=== PATIENT | female | born 1945 | race Caucasian/White ===

== ENCOUNTER → 2017-11-28 | Day surgery (SDC) | payer MEDICARE, BC ==
[~2017-11-28] MED LIST: Lactated Ringers 1,000 ML IV SCH; Propofol 200 MG/20 ML SDV IV ONE
[2017-11-28 12:32] VITALS: BP 132/61
--- NOTE | 2017-11-28 13:06 | OR ---
DATE OF OPERATION: 11/28/2017 PREOPERATIVE DIAGNOSIS: POSITIVE COLOGUARD. POSTOPERATIVE DIAGNOSIS: POSITIVE COLOGUARD. SURGEON: Santos Wood MD PROCEDURE: COLONOSCOPY WITH BIOPSY X3. ANESTHESIA: SENIOR TELECOMMUNICATIONS ENGINEER. COMPLICATIONS: None. SPECIMEN: Biopsy x3 right colon. FINDINGS: 1. Full-length colonoscopy. 2. Moderate sigmoid diverticulosis. 3. Mucosal abnormality cecum proximal ascending colon. RECOMMENDATIONS: Medical followup, pending path reports, and no obvious etiology found for the patient's positive Cologuard. INDICATIONS: The patient has been doing fine. Last colonoscopy 10 years ago was normal other than her diverticula. She had a positive Cologuard. Dr. Healy sent her in for colonoscopy. DESCRIPTION OF PROCEDURE: The patient was prepped and draped, placed in the left lateral decubitus position. A lubricated Olympus colonoscope was inserted and easily advanced to the cecum and under directly visualized the ileocecal valve and the appendiceal orifice. The bowel prep was excellent. Upon withdrawal, the patient almost as like early mild melanosis coli type picture in the cecum and proximal ascending colon. She has had some thickening in the glandular tissue over lining. Nothing specific in no obvious mass. I did do 2 biopsies near the cecum and one of the mid to distal ascending colon. The rest of the transverse and descending areas were completely benign. The patient does have prominent diverticulosis of the sigmoid and rectosigmoid junction, moderate in severity without any inflammatory change throughout the left colon. I could find no polyps, mass, ulceration, or bleeding sites. No vascular abnormalities or signs of colitis. The rectal vault was benign. Retroflexion showed no perianal lesions. Air was suctioned. Scope was removed without complication. ALLEN/MATEO /[id number]
== END ==
LOC: CC.SDS 09:43
PROVIDERS: ATTEND Family Medicine
DX: R19.5 Other fecal abnormalities (principal); K63.89 Other specified diseases of intestine; K57.30 Diverticulosis of large intestine without perforation or abscess without bleeding; I10 Essential (primary) hypertension; Z79.02 Long term (current) use of antithrombotics/antiplatelets; Z79.82 Long term (current) use of aspirin; Z79.899 Other long term (current) drug therapy; Z88.0 Allergy status to penicillin; Z88.8 Allergy status to other drugs, medicaments and biological substances
CPT/HCPCS: 00811; 45380; J2704; J7120

== ENCOUNTER 2019-04-18 10:02 | Emergency (ER) | payer MEDICARE, BC ==
--- NOTE | 2019-04-18 10:36 | EDM.PDOC ---
ED HPI GENERAL MEDICAL PROBLEM - General Chief Complaint: Cardiovascular Problem Stated Complaint: HTN Time Seen by Provider: 04/18/19 10:10 Source of Information: Reports: Patient History Limitations: Reports: No Limitations - History of Present Illness INITIAL COMMENTS - FREE TEXT/NARRATIVE: This patient is a 73 year old female that presents to the ER. Patient reports that the last few days she hasnt been feeling great. She reports that today she has taken her BP at home and it was high. She reports she took it again, and again, and it was still high. She reports as she took her BP her HR was also high at 111. The patient reports that in October she had her Metoprolol increased from 100mg to 150mg, she reports for HTN, but she states "it is not helping." The patient denies marroquin, dizziness, lightheaded, n, v, vision changes, chest pain , shortness of breath, abd pain, urinary/bowel changes, congestion, drainage, cough. Onset: Today Worsens with: Reports: None Associated Symptoms: Reports: Malaise. Denies: Confusion, Chest Pain, Cough, cough w sputum, Diaphoresis, Fever/Chills, Headaches, Loss of Appetite, Nausea/ Vomiting, Rash, Seizure, Shortness of Breath, Syncope, Weakness - Related Data Allergies Allergy/AdvReac Type Severity Reaction Status Date / Time lisinopril Allergy Rash Verified 04/18/19 10:35 Penicillins Allergy Rash Verified 04/18/19 10:35 Home Meds: Home Meds Aspirin [Adult Low Dose Aspirin EC] 81 mg PO DAILY 04/11/15 [History] Metoprolol Succinate [Toprol XL] 150 mg PO DAILY 04/11/15 [History] Potassium Chloride 10 meq PO DAILY 04/11/15 [History] hydroCHLOROthiazide [Hydrochlorothiazide] 12.5 mg PO DAILY 04/11/15 [History] Cholecalciferol (Vitamin D3) [Vitamin D3] 5,000 unit PO DAILY 11/24/17 [History] Cinnamon Bark [Cinnamon] 500 mg PO DAILY 11/24/17 [History] Fish Oil/DHA/EPA [Fish Oil 1,200 MG] 1 each PO DAILY 11/24/17 [History] Flaxseed Oil 1,000 mg PO DAILY 11/24/17 [History] Magnesium Oxide [Magnesium] 500 mg PO DAILY 11/24/17 [History] Rivaroxaban [Xarelto] 20 mg PO DAILY 04/18/19 [History] ED ROS GENERAL - Review of Systems Review Of Systems: See Below Constitutional: Reports: Malaise, Weakness (generalized) HEENT: Reports: No Symptoms Respiratory: Reports: No Symptoms. Denies: Shortness of Breath Cardiovascular: Reports: Blood Pressure Problem (HTN). Denies: Chest Pain, Dyspnea on Exertion, Edema, Lightheadedness, Palpitations, Syncope Endocrine: Reports: No Symptoms GI/Abdominal: Reports: No Symptoms. Denies: Diarrhea, Nausea, Vomiting : Reports: No Symptoms Musculoskeletal: Reports: No Symptoms Skin: Reports: No Symptoms Neurological: Reports: No Symptoms, Numbness (not new. previous from stroke 7 years ago). Denies: Confusion, Dizziness, Headache, Seizure, Syncope, Tremors, Trouble Speaking, Change in Speech Psychiatric: Reports: No Symptoms Hematologic/Lymphatic: Reports: No Symptoms Immunologic: Reports: No Symptoms ED EXAM, GENERAL - Physical Exam Exam: See Below Exam Limited By: No Limitations General Appearance: Alert, WD/WN, No Apparent Distress, Anxious Eye Exam: Bilateral Eye: Normal Inspection, PERRL Ears: Normal External Exam, Normal Canal, Hearing Grossly Normal, Normal TMs Ear Exam: Bilateral Ear: Auricle Normal, Canal Normal, TM normal Nose: Normal Inspection, Normal Mucosa, No Blood Throat/Mouth: Normal Inspection, Normal Lips, Normal Teeth, Normal Gums, Normal Oropharynx, Normal Voice, No Airway Compromise Head: Atraumatic, Normocephalic Neck: Normal Inspection, Supple, Non-Tender, Full Range of Motion Respiratory/Chest: No Respiratory Distress, Lungs Clear, Normal Breath Sounds, No Accessory Muscle Use Cardiovascular: Normal Peripheral Pulses, Regular Rate, Rhythm, No Edema, No Gallop, No JVD, No Murmur, No Rub Peripheral Pulses: 2+: Radial (L), Radial (R), Posterior Tibial (L), Posterior Tibial (R) GI/Abdominal: Normal Bowel Sounds, Soft, Non-Tender, No Organomegaly, No Distention, No Abnormal Bruit, No Mass, Pelvis Stable Back Exam: Normal Inspection, Full Range of Motion Extremities: Normal Inspection, Normal Range of Motion, Non-Tender, No Pedal Edema, Normal Capillary Refill Neurological: Alert, Oriented, CN II-XII Intact, Normal Cognition, Normal Gait, Normal Reflexes, Sensory/Motor Deficit (CHRONIC mildly decreased sensation to right side of body from previous old stroke. But able to distinguish.) Psychiatric: Anxious Skin Exam: Warm, Dry, Intact, Normal Color, No Rash Lymphatic: No Adenopathy EKG INTERPRETATION EKG Date: 04/18/19 Time: 10:11 Rhythm: NSR Rate (Beats/Min): 88 ST-T: Normal EKG Interpretation Comments: Artifact. Patient is anxious. Will repeat latera after patient not as anxious. Course - Vital Signs Last Recorded V/S: Last Vital Signs Temp 97.9 F 04/18/19 10:02 Pulse 76 04/18/19 11:13 Resp 18 04/18/19 10:02 BP 156/74 H 04/18/19 11:13 Pulse Ox 98 04/18/19 10:02 - Orders/Labs/Meds Orders: Active Orders 24 hr Category Date Time Status EKG Documentation Completion [RC] STAT Care 04/18/19 10:22 Active Chest 2V [CR] Stat Exams 04/18/19 10:20 Taken Sodium Chloride 0.9% [Normal Saline] 500 ml Med 04/18/19 11:15 Active IV .BOLUS Medication Orders Sodium Chloride (Normal Saline) 500 mls @ 500 mls/hr IV .BOLUS CRISTEL Last Admin: 04/18/19 11:47 Dose: 500 mls/hr Labs: Laboratory Tests 04/18/19 04/18/19 04/18/19 Range/Units 10:20 10:20 13:00 WBC 11.0 H (5.0-10.0) 10^3/uL RBC 4.86 (4.00-5.50) 10^6/uL Hgb 14.6 (12.0-16.0) g/dL Hct 42.4 (37.0-47.0) % MCV 87.2 (82.0-94.0) fL MCH 30.0 (27.0-32.0) pg MCHC 34.4 (33.0-38.0) g/dL RDW Coeff of [place] 14.2 (11.0-15.0) % Plt Count 331 (150-400) 10^3/uL Neut % (Auto) 81.4 (35-85) % Lymph % (Auto) 9.2 L (10-55) % [place] % (Auto) 7.2 (0-16) % Eos % (Auto) 1.7 (0-5) % Baso % (Auto) 0.5 (0-3) % Neut # (Auto) 8.92 H (1.80-7.00) 10^3/uL Lymph # (Auto) 1.01 (1.00-4.80) 10^3/uL [place] # (Auto) 0.79 (0.00-0.80) 10^3/uL Eos # (Auto) 0.19 (0.00-0.45) 10^3/uL Baso # (Auto) 0.06 10^3/uL Sodium 140 (136-145) mEq/L Potassium 4.0 (3.5-5.0) mEq/L Chloride 104 (98-106) mEq/L Carbon Dioxide 29 (21-32) mmol/L BUN 20 H (7-18) mg/dL Creatinine 1.2 H (0.6-1.0) mg/dL Est Cr Clr Drug Dosing 43.63 mL/min Estimated GFR (MDRD) 44 L (>=60) mL/min Glucose 133 H (75-99) mg/dL Calcium 9.5 (8.4-10.1) mg/dL Magnesium 1.9 (1.8-2.4) mg/dL Total Bilirubin 0.4 (0.0-1.0) mg/dL AST 17 (15-37) U/L ALT 22 (12-78) U/L Alkaline Phosphatase 117 H (46-116) U/L Lactate Dehydrogenase 171 (100-190) U/L Creatine Kinase 103 (21-215) U/L Troponin I < 0.017 < 0.017 (0.00-0.06) ng/mL NT-Pro-B Natriuret Pep 166 (0-1000) pg/mL Total Protein 7.2 (6.4-8.2) g/dL Albumin 3.6 (3.4-5.0) g/dL Meds: Medications Generic Name Dose Route Start Last Admin Trade Name Freq PRN Reason Stop Dose Admin Sodium Chloride 500 mls @ 500 mls/hr 04/18/19 11:15 04/18/19 11:47 Normal Saline IV 500 mls/hr .BOLUS CRISTEL Administration Discontinued Medications Generic Name Dose Route Start Last Admin Trade Name Freq PRN Reason Stop Dose Admin Lorazepam 1 mg 04/18/19 11:17 04/18/19 11:47 Ativan IVPUSH 04/18/19 11:18 1 mg ONETIME ONE Administration - Radiology Interpretation Free Text/Narrative:: CXR: No infiltrates, no cardiac enlargement, no pulmonary edema. - Re-Assessments/Exams Free Text/Narrative Re-Assessment/Exam: 04/18/19 11:19 Went to speak to the patient about her results. She said she has been getting these episodes since her stroke 7 years ago of periods where she just doesnt feel good. She reports that she has periods of HTN. She asked if she is just supposed to live like this. The patient was educated about BP fluctuations, her labs here in the ER. I will repeat a troponin at repeat time. I asked the patient if she does feel anxious, because she appears to be anxious. She said that her PCP actually prescribed her Lorazepam and she took when she felt like this before. She reports it always helped her for these episodes in the past. I will give her Ativan IV, she has agreed to this and thinks it may help. We also further talked about her followup with her PCP and specialist that she sees. 04/18/19 13:42 Troponins negative. EKG shows no ST elevation. Latest BP is 156/74, HR is 76. Patient reports she does feel some better after having medication and me talking with her. I educated her that currently at this time no AK. She still has no complaint of chest pain, shortness of breath, nausea or any pain complains. I discussed with her no emergencies during her visit, she is to followup with her PCP tomorrow to discuss her concerns and medications. She is okay with this and is ready to go home. I will discharge the patient home. She voices back understanding when to return to the ER. Departure - Departure Time of Disposition: 13:37 Disposition: Home, Self-Care 01 Condition: Fair Clinical Impression: Anxiety Hypertensive heart disease Qualifiers: Heart failure presence: without heart failure Qualified Code(s): I11.9 - Hypertensive heart disease without heart failure Instructions: How to Take Your Blood Pressure, [id number], Hypertension Referrals: PCP,None [Primary Care Provider] - Forms: ED Department Discharge Additional Instructions: Followup with Dr. Healy tomorrow by calling his office tomorrow morning and be seen Return to the ER for worsening of condition or any emergent concerns such as chest pain, shortness of breath, stroke, or any concerns at all Please discuss your concerns, blood pressure, and medications with Dr. Healy You were given Lorezapam in the ER Go home and rest, no activity - My Orders Last 24 Hours: My Active Orders 04/18/19 10:20 Chest 2V [CR] Stat 04/18/19 10:22 EKG Documentation Completion [RC] STAT 04/18/19 11:15 Sodium Chloride 0.9% [Normal Saline] 500 ml IV .BOLUS - Assessment/Plan Last 24 Hours: My Active Orders 04/18/19 10:20 Chest 2V [CR] Stat 04/18/19 10:22 EKG Documentation Completion [RC] STAT 04/18/19 11:15 Sodium Chloride 0.9% [Normal Saline] 500 ml IV .BOLUS Plan: PLEASE SEE RN NOTE FOR PFSH
[2019-04-18 10:53] LABS: CHLORIDE,CL 104 mEq/L (98-106); SODIUM,NA 140 mEq/L (136-145)
[2019-04-18 11:13] VITALS: BP 156/74; PULSE 76
[2019-04-18] MEDS: LORazepam 2 MG/ML Syringe IVPUSH ONE (11:47)
[2019-04-18] MEDS: Sodium Chloride 0.9% 500 ML IV SCH (11:47)
== END 2019-04-18 13:49 | disposition home or self-care (01) ==
LOC: CC.ED 10:02
DX: F41.9 Anxiety disorder, unspecified (principal); I11.9 Hypertensive heart disease without heart failure; Z79.01 Long term (current) use of anticoagulants; Z79.82 Long term (current) use of aspirin; Z79.899 Other long term (current) drug therapy; Z86.73 Personal history of transient ischemic attack (TIA), and cerebral infarction without residual deficits; Z88.0 Allergy status to penicillin; Z88.8 Allergy status to other drugs, medicaments and biological substances
CPT/HCPCS: 36415; 71046; 80053; 82550; 83615; 83735; 83880; 84484; 85025; 93005; 96360; 96374; 99284-25; J2060; J7040

== ENCOUNTER 2021-07-13 09:05 | Emergency (ER) | payer MEDICARE, BC ==
[2021-07-13] MEDS ORDERED: methylPREDNISolone Sodium Succinate 125 MG/2 ML SDV IVPUSH PRN (10:03)
[2021-07-13] MEDS ORDERED: EPINEPHrine 1 MG/ML SDV IM PRN (10:03)
[2021-07-13] MEDS ORDERED: Famotidine 20 MG/2 ML SDV IVPUSH PRN (10:03)
[2021-07-13] MEDS ORDERED: diphenhydrAMINE 50 MG/ML SDV IVPUSH PRN (10:03)
[2021-07-13] MEDS ORDERED: Sodium Chloride 0.9% 10 ML Syringe FLUSH SCH (10:15)
[2021-07-13] MEDS ORDERED: NS + KCl 20mEq/L 1,000 ML IV SCH (10:15)
--- NOTE | 2021-07-13 11:22 | EDM.PDOC ---
ED HPI GENERAL MEDICAL PROBLEM - General Chief Complaint: General Stated Complaint: Diareha, Fatigue, SOB Time Seen by Provider: 07/13/21 09:30 Source of Information: Reports: Patient History Limitations: Reports: No Limitations - History of Present Illness INITIAL COMMENTS - FREE TEXT/NARRATIVE: Sonya is a 75 yo female who presents to the ED with c/o malaise and diarrhea. She reports symptom onset Friday07/09/2021. Reports since that time she has had multiple episodes of diarrhea a day. Reports even if she has a few sips of water, she will have a loose stool. Has been drinking ok but not eating. Has severe malaise and fatigue. Reports she has been unable to sleep more than 2 hours at night the last 2 nights. Reports she has been having body aches. She denies any fever or chills. Does have cough, sinus congestion, nausea, mild shortness of breath. Has received covid vaccine 2 dose series. Denies any known contact. Has known afib. Is anticoagulated with Xarelto and rate control with metformin. Denies any dizziness, chest pain, palpitations. Onset Date: 07/09/21 Duration: Constant Location: Reports: Generalized Severity: Moderate Associated Symptoms: Reports: Cough, Headaches, Loss of Appetite, Malaise, Shortness of Breath, Weakness. Denies: Confusion, Chest Pain, cough w sputum, Diaphoresis, Fever/Chills, Nausea/Vomiting, Rash, Seizure, Syncope body aches Pain Score (Numeric/FACES): 6 - Related Data Allergies Allergy/AdvReac Type Severity Reaction Status Date / Time lisinopril Allergy Rash Verified 04/18/19 10:35 Penicillins Allergy Rash Verified 04/18/19 10:35 Home Meds: Home Meds Metoprolol Succinate [Toprol XL] 200 mg PO DAILY 04/11/15 [History] Potassium Chloride 10 meq PO DAILY 04/11/15 [History] hydroCHLOROthiazide [Hydrochlorothiazide] 12.5 mg PO DAILY 04/11/15 [History] Cholecalciferol (Vitamin D3) [Vitamin D3] 5,000 unit PO DAILY 11/24/17 [History] Cinnamon Bark [Cinnamon] 500 mg PO DAILY 11/24/17 [History] Fish Oil/DHA/EPA [Fish Oil 1,200 MG] 1 each PO DAILY 11/24/17 [History] Magnesium Oxide [Magnesium] 500 mg PO DAILY 11/24/17 [History] flaxseed oiL [Flaxseed Oil] 1,000 mg PO DAILY 11/24/17 [History] Rivaroxaban [Xarelto] 20 mg PO DAILY 04/18/19 [History] Torsemide 20 mg PO DAILY 07/13/21 [History] Past Medical History Cardiovascular History: Reports: Afib, High Cholesterol, Hypertension Neurological History: Reports: CVA Other Neuro History: pt reports stroke 3 years ago Social & Family History - Family History Family Medical History: No Pertinent Family History - Tobacco Use Tobacco Use Status *Q: Never Tobacco User Second Hand Smoke Exposure: No - Caffeine Use Caffeine Use: Reports: None - Recreational Drug Use Recreational Drug Use: No ED ROS GENERAL - Review of Systems Review Of Systems: Comprehensive ROS is negative, except as noted in HPI. ED EXAM, GENERAL - Physical Exam Exam: See Below Exam Limited By: No Limitations General Appearance: Alert, WD/WN, No Apparent Distress, Other (tired) Eye Exam: Bilateral Eye: EOMI, Normal Fundi, Normal Inspection, PERRL Ears: Normal External Exam, Normal Canal, Hearing Grossly Normal, Normal TMs Nose: Nasal Swelling, Nasal Drainage Throat/Mouth: Normal Inspection, Normal Lips, Normal Teeth, Normal Gums, Normal Oropharynx, Normal Voice, No Airway Compromise Head: Atraumatic, Normocephalic Neck: Normal Inspection, Supple, Non-Tender, Full Range of Motion Respiratory/Chest: No Respiratory Distress, Lungs Clear, Normal Breath Sounds, No Accessory Muscle Use, Chest Non-Tender Cardiovascular: No Edema, No Murmur, Tachycardia, Irregularly Irregular Peripheral Pulses: 2+: Radial (L), Radial (R), Dorsalis Pedis (L), Dorsalis Pedis (R) GI/Abdominal: Normal Bowel Sounds, Soft, Non-Tender, No Organomegaly, No Distention, No Abnormal Bruit, No Mass Back Exam: Normal Inspection, Full Range of Motion, NT Extremities: Normal Inspection, Normal Range of Motion, Non-Tender, Normal Capillary Refill, No Pedal Edema Neurological: Alert, Oriented, CN II-XII Intact, Normal Cognition, Normal Gait, Normal Reflexes, No Motor/Sensory Deficits Psychiatric: Normal Affect, Normal Mood Skin Exam: Warm, Dry, Intact, No Rash, Pallor Lymphatic: No Adenopathy Course - Vital Signs Last Recorded V/S: Last Vital Signs Temp 99.3 F 07/13/21 09:12 Pulse 99 07/13/21 12:00 Resp 18 07/13/21 12:00 BP 141/88 H 07/13/21 12:00 Pulse Ox 96 07/13/21 12:00 - Orders/Labs/Meds Orders: Active Orders 24 hr Category Date Time Status Chest 2V [CR] Stat Exams 07/13/21 09:06 Taken Isolation [COMM] Routine Oth 07/13/21 09:08 Active Labs: Laboratory Tests 07/13/21 07/13/21 07/13/21 Range/Units 09:06 09:20 09:20 WBC 12.8 H (4.0-11.0) 10^3/uL RBC 4.79 (4.00-5.50) x10^6/uL Hgb 13.9 (12.0-16.0) g/dL Hct 41.4 (37.0-47.0) % MCV 86.4 (83.0-97.0) fL MCH 29.0 (27.0-32.0) pg MCHC 33.6 (32.0-36.0) g/dL RDW Coeff of Chester 13.3 (11.0-15.0) % Plt Count 250 (150-400) 10^3/uL Immature Gran % (Auto) 0.2 (0.0-4.9) % Neut % (Auto) 82.9 H (41-71) % Lymph % (Auto) 6.9 L (24-44) % Rains % (Auto) 9.7 (0-10) % Eos % (Auto) 0.1 (0-6) % Baso % (Auto) 0.2 (0-1) % Neut # (Auto) 10.65 H (1.80-8.00) x10^3/uL Lymph # (Auto) 0.88 (0.60-5.00) 10^3/uL Rains # (Auto) 1.25 (0.00-1.50) 10^3/uL Eos # (Auto) 0.01 (0.00-1.50) 10^3/uL Baso # (Auto) 0.02 (0.00-0.50) 10^3/uL Immature Gran # (Auto) 0.03 (0.00-0.49) 10^3/uL APTT (23.2-32.3) SEC Sodium 134 L (136-145) mEq/L Potassium 3.4 L (3.5-5.0) mEq/L Chloride 96 L (98-106) mEq/L Carbon Dioxide 28 (21-32) mmol/L BUN 14 (7-18) mg/dL Creatinine 1.3 H (0.6-1.0) mg/dL Est Cr Clr Drug Dosing 37.72 mL/min Estimated GFR (MDRD) 40 L (>=60) mL/min Glucose 153 H (75-99) mg/dL Calcium 8.6 (8.4-10.1) mg/dL Magnesium 1.9 (1.8-2.4) mg/dL Total Bilirubin 1.0 (0.0-1.0) mg/dL AST 27 (15-37) U/L ALT 36 (12-78) U/L Alkaline Phosphatase 138 H (46-116) U/L Troponin I High Sens 14.9 (<=51) pg/mL C-Reactive Protein 4.0 H (0.2-0.8) mg/dL Total Protein 7.8 (6.4-8.2) g/dL Albumin 3.8 (3.4-5.0) g/dL Urine Color (YELLOW) Urine Appearance (CLEAR) Urine pH (4.5-8.0) Ur Specific Conway (1.003-1.020) Urine Protein (NEGATIVE) mg/dL Urine Glucose (UA) (NEGATIVE) mg/dL Urine Ketones (NEGATIVE) mg/dL Urine Occult Blood (NEGATIVE) Urine Nitrite (NEGATIVE) Urine Bilirubin (NEGATIVE) Urine Urobilinogen (0.2-1.0) EU/dL Ur Leukocyte Esterase (NEGATIVE) SARS CoV-2 RNA Rapid CONCHITA Positive H (NEGATIVE) 07/13/21 07/13/21 Range/Units 09:20 11:35 WBC (4.0-11.0) 10^3/uL RBC (4.00-5.50) x10^6/uL Hgb (12.0-16.0) g/dL Hct (37.0-47.0) % MCV (83.0-97.0) fL MCH (27.0-32.0) pg MCHC (32.0-36.0) g/dL RDW Coeff of Chester (11.0-15.0) % Plt Count (150-400) 10^3/uL Immature Gran % (Auto) (0.0-4.9) % Neut % (Auto) (41-71) % Lymph % (Auto) (24-44) % Rains % (Auto) (0-10) % Eos % (Auto) (0-6) % Baso % (Auto) (0-1) % Neut # (Auto) (1.80-8.00) x10^3/uL Lymph # (Auto) (0.60-5.00) 10^3/uL Rains # (Auto) (0.00-1.50) 10^3/uL Eos # (Auto) (0.00-1.50) 10^3/uL Baso # (Auto) (0.00-0.50) 10^3/uL Immature Gran # (Auto) (0.00-0.49) 10^3/uL APTT 36.5 H (23.2-32.3) SEC Sodium (136-145) mEq/L Potassium (3.5-5.0) mEq/L Chloride (98-106) mEq/L Carbon Dioxide (21-32) mmol/L BUN (7-18) mg/dL Creatinine (0.6-1.0) mg/dL Est Cr Clr Drug Dosing mL/min Estimated GFR (MDRD) (>=60) mL/min Glucose (75-99) mg/dL Calcium (8.4-10.1) mg/dL Magnesium (1.8-2.4) mg/dL Total Bilirubin (0.0-1.0) mg/dL AST (15-37) U/L ALT (12-78) U/L Alkaline Phosphatase (46-116) U/L Troponin I High Sens (<=51) pg/mL C-Reactive Protein (0.2-0.8) mg/dL Total Protein (6.4-8.2) g/dL Albumin (3.4-5.0) g/dL Urine Color Light yellow (YELLOW) Urine Appearance Clear (CLEAR) Urine pH 6.0 (4.5-8.0) Ur Specific Conway 1.010 (1.003-1.020) Urine Protein Negative (NEGATIVE) mg/dL Urine Glucose (UA) Negative (NEGATIVE) mg/dL Urine Ketones Negative (NEGATIVE) mg/dL Urine Occult Blood Negative (NEGATIVE) Urine Nitrite Negative (NEGATIVE) Urine Bilirubin Negative (NEGATIVE) Urine Urobilinogen 0.2 (0.2-1.0) EU/dL Ur Leukocyte Esterase Negative (NEGATIVE) SARS CoV-2 RNA Rapid CONCHITA (NEGATIVE) Meds: Medications Discontinued Medications Generic Name Dose Route Start Last Admin Trade Name Freq PRN Reason Stop Dose Admin Diphenhydramine HCl 50 mg 07/13/21 10:03 Diphenhydramine 50 Mg/Ml Sdv IVPUSH ASDIRECTED PRN hypersensitivity reaction Epinephrine HCl 0.3 mg 07/13/21 10:03 Epinephrine 1 Mg/Ml Sdv IM ASDIRECTED PRN hypersensitivity reaction Famotidine 20 mg 07/13/21 10:03 Famotidine 20 Mg/2 Ml Sdv IVPUSH ASDIRECTED PRN hypersensitivity reaction Potassium Chloride/Sodium Chloride 1,000 mls @ 500 mls/hr 07/13/21 10:15 07/13/21 10:18 Normal Saline With 20 Meq Kcl IV 500 mls/hr ASDIRECTED CRISTEL Administration CASIRIVIMAB/IMDEVIMAB 10 ml/ 110 mls @ 220 mls/hr 07/13/21 10:03 07/13/21 10:37 Sodium Chloride IV 07/13/21 10:32 220 mls/hr ONETIME ONE Administration Methylprednisolone Sodium Succinate 125 mg 07/13/21 10:03 Methylprednisolone Sodium Succinate 125 Mg/2 Ml Sdv IVPUSH ASDIRECTED PRN hypersensitivity reaction Sodium Chloride 30 ml 07/13/21 10:15 Sodium Chloride 0.9% 10 Ml Syringe FLUSH ASDIRECTED CRISTEL Temazepam 15 mg 07/13/21 12:09 07/13/21 13:06 Temazepam 15 Mg Cap PO 15 mg BEDTIME PRN Administration Insomnia Temazepam Confirm 07/13/21 13:21 Temazepam 15 Mg Cap Administered 07/13/21 13:22 Dose 30 mg .ROUTE .STK-MED ONE - Re-Assessments/Exams Free Text/Narrative Re-Assessment/Exam: Discussed lab, EKG and CXR results with patient. Lab work stable. EKG does show afib with RVR. Rates ranging 115-130s. Patent is asymptomatic. Is anticoagulated with Xarelto. Is Influenza B and covid positive. Discussed monoclonal antibodies including EUA. Patient wishes to proceed with these. Will also give patient 1 L NS with KCL due to ongoing diarrhea and poor oral intake. Departure - Departure Time of Disposition: 12:12 Disposition: Home, Self-Care 01 Condition: Fair Clinical Impression: Influenza B, COVID-19, Chronic a-fib - Discharge Information *PRESCRIPTION DRUG MONITORING PROGRAM REVIEWED*: Not Applicable *COPY OF PRESCRIPTION DRUG MONITORING REPORT IN PATIENT LONI: Not Applicable Instructions: Influenza, Adult, [id number] Referrals: Jamir Healy MD [Primary Care Provider] - Forms: ED Department Discharge Additional Instructions: - Rest and push fluids - Tylenol or ibuprofen as needed for fever/discomfort - Restoril 1 tablet at bedtime as needed for insomnia - Routine symptomatic cares - Continue home medications - Recommend holding torsemide the next few days until oral intake improves - Follow up with PCP for recheck in 5-7 days, sooner if symptoms worsening or not improving - Return to ED for any emergent needs Sepsis Event Note (ED) - Evaluation Sepsis Screening Result: No Definite Risk - Focused Exam Vital Signs: Vital Signs Temp Pulse Resp BP Pulse Ox 07/13/21 12:00 99 18 141/88 H 96 07/13/21 11:45 95 18 133/66 98 07/13/21 11:15 99 18 142/78 H 96 07/13/21 11:04 101 H 18 139/78 96 07/13/21 10:49 98 18 137/68 96 07/13/21 09:12 99.3 F 121 H 20 142/76 H 95 - Problem List & Annotations (1) COVID-19 SNOMED Code(s): 777070993 Code(s): U07.1 - COVID-19 Status: Acute (2) Influenza B SNOMED Code(s): 35858423 Code(s): J10.1 - FLU DUE TO OTH IDENT INFLUENZA VIRUS W OTH RESP MANIFEST Status: Acute (3) Chronic a-fib SNOMED Code(s): 521004800 Code(s): I48.20 - CHRONIC ATRIAL FIBRILLATION, UNSPECIFIED Status: Acute - Problem List Review Problem List Initiated/Reviewed/Updated: Yes - My Orders Last 24 Hours: My Active Orders 07/13/21 09:06 Chest 2V [CR] Stat 07/13/21 09:08 Isolation [COMM] Routine - Assessment/Plan Last 24 Hours: My Active Orders 07/13/21 09:06 Chest 2V [CR] Stat 07/13/21 09:08 Isolation [COMM] Routine Assessment:: Covid 19 Influenza B A fib with RVR Plan: 75 year old female presents to the ED with 5 days history of diarrhea and generalized malaise. Labs relatively stable except is positive for both Covid 19 and Influenza B. Patient was given monoclonal antibodies as well as 1 L NS with 20 meq KCL. Reports feeling better after IVF. She will be discharged home. She requests something to help her sleep, as she has been unable to sleep. Will give patient Restoril #3 tablets to aide in sleep. She is advised to continue routine symptomatic cares. She is advised to continue her medications. Discussed holding her torsemide until she is able to eat/drink per usual. She is advised to follow up with PCP in the next 5-7 days, sooner if symptoms worsen or do not seem to be improving. She is discharged from facility in stable condition. Is advised to return to the ED for any emergent needs.
[2021-07-13] MEDS ORDERED: Temazepam 15 MG Cap PO PRN (12:09)
[2021-07-13 12:21] VITALS: BP 141/88; PULSE 99
[2021-07-13] MEDS ORDERED: Temazepam 15 MG Cap ONE (13:21)
== END 2021-07-13 13:18 | disposition home or self-care (01) ==
LOC: CC.ED 09:05
DX: U07.1 COVID-19 (principal); J10.1 Influenza due to other identified influenza virus with other respiratory manifestations; I48.20 Chronic atrial fibrillation, unspecified; I10 Essential (primary) hypertension; Z86.73 Personal history of transient ischemic attack (TIA), and cerebral infarction without residual deficits; Z79.01 Long term (current) use of anticoagulants; Z79.899 Other long term (current) drug therapy; Z88.8 Allergy status to other drugs, medicaments and biological substances; Z88.0 Allergy status to penicillin
CPT/HCPCS: 36415; 71046; 80053; 81003; 83735; 84484; 85025; 85730; 86140; 87804; 93005; 96365; 96366; 99284-25; A9270-GY; J3480; M0243; Q0243; U0002

== ENCOUNTER 2025-02-19 14:03 | Emergency (ER) | payer MEDICARE, BC ==
[2025-02-19 14:29] LABS: BASOPHILS ABSOLUTE AUTO 0.08 10^3/uL (0.00-0.50); BASOPHILS PERCENT AUTO 0.8 % (0-1); EOSINOPHILS ABSOLUTE AUTO 0.08 10^3/uL (0.00-1.50); EOSINOPHILS PERCENT AUTO 0.8 % (0-6); IMMATURE GRAN ABSOLUTE AUTO 0.02 10^3/uL (0.00-0.49); IMMATURE GRAN PERCENT AUTO 0.2 % (0.0-4.9); LYMPHOCYTES ABSOLUTE AUTO 1.10 10^3/uL (0.60-5.00); LYMPHOCYTES PERCENT AUTO 11.0 % (24-44); MONOCYTES ABSOLUTE AUTO 0.82 10^3/uL (0.00-1.50); MONOCYTES PERCENT AUTO 8.2 % (0-10); NEUTROPHILS ABSOLUTE AUTO 7.93 x10^3/uL (1.80-8.00); NEUTROPHILS PERCENT AUTO 79.0 % (41-71); PLATELET COUNT,PLT 352 10^3/uL (150-400); RED BLOOD CELL COUNT 1.87 x10^6/uL (4.00-5.50); WHITE BLOOD CELL COUNT,WBC 10.0 10^3/uL (4.0-11.0)
[2025-02-19 14:40] LABS: ALANINE AMINOTRANSFERASE,ALT 23 U/L (12-78); ASPARTATE AMNIOTRANSFERASE,AST 17 U/L (15-37); BILIRUBIN TOTAL 0.4 mg/dL (0.0-1.0); BLOOD UREA NITROGEN,BUN 28 mg/dL (7-18); CARBON DIOXIDE,CO2 28 mmol/L (21-32); CHLORIDE,CL 101 mEq/L (98-106); CREATININE 1.7 mg/dL (0.6-1.0); GLUCOSE RANDOM 162 mg/dL (75-99); POTASSIUM,K 3.7 mEq/L (3.5-5.0); PROTEIN TOTAL,TP 6.1 g/dL (6.4-8.2); SODIUM,NA 137 mEq/L (136-145)
[2025-02-19 14:41] LABS: ESTIMATED GFR 30 mL/min (>=60)
[2025-02-19 16:40] VITALS: BP 110/53; PULSE 102
== END 2025-02-19 16:15 ==
LOC: CC.ED 14:03
DX: K92.2 Gastrointestinal hemorrhage, unspecified (principal); R53.83 Other fatigue; R06.02 Shortness of breath; I48.91 Unspecified atrial fibrillation; E78.00 Pure hypercholesterolemia, unspecified; I10 Essential (primary) hypertension; Z86.73 Personal history of transient ischemic attack (TIA), and cerebral infarction without residual deficits; Z88.0 Allergy status to penicillin; Z88.8 Allergy status to other drugs, medicaments and biological substances; Z79.01 Long term (current) use of anticoagulants; Z79.899 Other long term (current) drug therapy; Z79.84 Long term (current) use of oral hypoglycemic drugs
CPT/HCPCS: 36415; 36430; 80053; 82272; 85025; 86140; 86850; 86900; 86901; 86920; 86922; 96374; 99285-25; A9270-GY; J2470; J7030; J7050; P9016